=== PATIENT | female | born 1965 | race American Indian/Alaskan Native ===

== ENCOUNTER 2017-11-08 22:43 | Emergency (ER) | payer BC, OTHER ==
[2017-11-08 23:00] VITALS: BP 137/84
== END 2017-11-09 00:43 | disposition left against medical advice (07) ==
LOC: ED 22:43
DX: R68.84 Jaw pain (principal); Z53.21 Procedure and treatment not carried out due to patient leaving prior to being seen by health care provider
CPT/HCPCS: 93005; 93010